=== PATIENT | female | born 1955 | race Caucasian/White ===

== ENCOUNTER → 2017-06-11 | Outpatient (CLI) | payer BC ==
[~2017-06-11] MED LIST: AMLO10TA2 PO; FLUO40CA9 PO; LOSA25TA5 PO
== END | disposition home or self-care (01) ==
LOC: CFH 08:10
PROVIDERS: ATTEND Internal Medicine Hematology & Oncology
DX: C50.212 Malignant neoplasm of upper-inner quadrant of left female breast (principal); Z92.21 Personal history of antineoplastic chemotherapy; Z92.3 Personal history of irradiation
CPT/HCPCS: 76641; G0206

== ENCOUNTER → 2017-06-11 | Outpatient (CLI) | payer BC | END | disposition home or self-care (01) | LOC: PETCFH 08:06 | PROVIDERS: ATTEND Internal Medicine Hematology & Oncology | DX: M89.8X8 Other specified disorders of bone, other site (principal); M89.58 Osteolysis, other site; C50.512 Malignant neoplasm of lower-outer quadrant of left female breast | CPT/HCPCS: 78815; A9552 ==

== ENCOUNTER → 2017-11-26 | Outpatient (CLI) | payer BC | END | disposition home or self-care (01) | LOC: PETCFH 07:25 | PROVIDERS: ATTEND Internal Medicine Hematology & Oncology | DX: C50.512 Malignant neoplasm of lower-outer quadrant of left female breast (principal); M85.88 Other specified disorders of bone density and structure, other site | CPT/HCPCS: 78815; A9552 ==

== ENCOUNTER → 2018-03-25 | Outpatient (CLI) | payer BC | END | disposition home or self-care (01) | LOC: PETCFH 13:20 | PROVIDERS: ATTEND Internal Medicine Hematology & Oncology | DX: C79.51 Secondary malignant neoplasm of bone (principal); C50.512 Malignant neoplasm of lower-outer quadrant of left female breast; G89.3 Neoplasm related pain (acute) (chronic) | CPT/HCPCS: 78815; A9552 ==

== ENCOUNTER → 2018-04-22 | Outpatient (CLI) | payer BC | LOC: ROC 13:43 | PROVIDERS: ATTEND Radiology Radiation Oncology | DX: Z08 Encounter for follow-up examination after completed treatment for malignant neoplasm (principal); C79.51 Secondary malignant neoplasm of bone; C50.512 Malignant neoplasm of lower-outer quadrant of left female breast | CPT/HCPCS: 99214; G0463 ==

== ENCOUNTER → 2018-05-14 | Outpatient (CLI) | payer BC | END | disposition home or self-care (01) | LOC: CFH 13:44 | PROVIDERS: ATTEND Radiology Radiation Oncology | DX: C79.51 Secondary malignant neoplasm of bone (principal); C50.512 Malignant neoplasm of lower-outer quadrant of left female breast; G89.3 Neoplasm related pain (acute) (chronic) | CPT/HCPCS: 72190; 72220 ==

== ENCOUNTER → 2018-08-05 | Outpatient (CLI) | payer BC ==
[~2018-08-05] MED LIST changes: -AMLO10TA2 PO; +AMLO10TA6 PO; -LOSA25TA5 PO; +LOSA25TA6 PO
== END | disposition home or self-care (01) ==
LOC: EDSTATUS 06-06 14:11 → ROC 09:46
PROVIDERS: ATTEND Radiology Radiation Oncology
DX: Z02.9 Encounter for administrative examinations, unspecified (principal)

== ENCOUNTER → 2018-11-15 | Outpatient (CLI) | payer BC ==
[~2018-11-15] MED LIST changes: +GADOBUTROL 7.5 MMOL/7.5 ML PFS ONE; +LOSA25TA25 PO; -LOSA25TA6 PO
== END | disposition home or self-care (01) ==
LOC: CFH 14:59
PROVIDERS: ATTEND Internal Medicine Hematology & Oncology
DX: R11.2 Nausea with vomiting, unspecified (principal); R42 Dizziness and giddiness
CPT/HCPCS: 70553; A9585

== ENCOUNTER → 2018-11-21 | Outpatient (CLI) | payer BC ==
[~2018-11-21] MED LIST changes: -AMLO10TA6 PO; +AMLO10TA8 PO; -GADOBUTROL 7.5 MMOL/7.5 ML PFS ONE
== END | disposition home or self-care (01) ==
LOC: PETCFH 12:52
PROVIDERS: ATTEND Internal Medicine Hematology & Oncology
DX: C50.512 Malignant neoplasm of lower-outer quadrant of left female breast (principal); Z85.3 Personal history of malignant neoplasm of breast
CPT/HCPCS: 78815; A9552

== ENCOUNTER 2019-01-09 16:17 | Observation (INO) | payer BC ==
[~2019-01-09] VITALS: Ht 162.6 cm; Wt 50.0 kg
--- NOTE | 2019-01-09 16:20 | NUR ---
63 YR OLD FEMALE ARRIVED VIA EMS. PT STRAIGHT TO CT. PER EMS, LEFT FACIAL DROOP, GARBLED SPEECH, NO WEAKNESS OR PARASTESIA. PT WITH SAJAN IV'S IN PLACE, BS 80. PER PTS , HE CAME HOME HEARD A "MOAN" HE FOUND HER TO BE "LOCKED UP, LEFT GAZE" NOT RESPONDING, "HOLDING BREATH" AND THEN IT RELAXED. LAST NORMAL [id number]. PT WITH FLAT AFFECT, SLIGHT LEFT FACIAL DROOP. PT FOLLOWS COMMANDS IE: SQUEEZE MY HANDS. PT DENIES PAIN AT THIS TIME. PER PTS , "THAT IS WEIRD, SHE TAKES PAIN MEDS, SHES ALWAYS IN PAIN"
--- NOTE | 2019-01-09 16:45 | NUR ---
PLACED IN ROOM FROM CT. DR ESCOBAR AT BEDSIDE TO EVAL PT. PTS ROHAN AT BEDSIDE
[2019-01-09 16:59] LABS: MEAN CORPUSCULAR HEMOGLOBIN 36.2 pg (27.0-34.8); MEAN CORPUSCULAR VOLUME 106.5 fL (80-100); MEAN PLATELET VOLUME 6.9 fL (7.4-10.4); PLATELET COUNT 146 x10^3/uL (130-400); RED BLOOD COUNT 3.65 x10^6/uL (3.82-5.3)
[2019-01-09 17:06] LABS: INTERNATIONAL NORMALIZED RATIO 0.99 (0.93-1.1); PROTHROMBIN TIME 10.4 Seconds (9.6-11.5)
--- NOTE | 2019-01-09 17:07 | NUR ---
DR BLANCO AT BEDSIDE TO EVAL PT
[2019-01-09] MEDS ORDERED: PROC25SU25 PR (17:20)
[2019-01-09] MEDS ORDERED: ALPR0.25 PO (17:20)
[2019-01-09] MEDS ORDERED: OXYC5TAB3 PO (17:20)
[2019-01-09] MEDS ORDERED: OXYC15TA60 PO (17:20)
--- NOTE | 2019-01-09 17:28 | NUR ---
DR KWOK AT BEDSIDE TO EVAL PT
[2019-01-09 17:34] LABS: BASOPHILS % (AUTO) 0 % (0-1); EOSINOPHILS # (AUTO) 0.01 x10^3/uL (0-0.4); EOSINOPHILS % (AUTO) 0 % (1-7); LYMPHOCYTES # (AUTO) 0.24 x10^3/uL (1-3.4); LYMPHOCYTES % (AUTO) 11 % (22-44); MD MORPH REVIEW ONLY; MONOCYTES # (AUTO) 0.13 x10^3/uL (0.2-0.8); MONOCYTES % (AUTO) 6 % (2-9); NEUTROPHILS # (AUTO) 1.82 x10^3/uL (1.8-6.8); NEUTROPHILS % (AUTO) 83 % (42-75)
[2019-01-09 17:35] LABS: <PLATELET ESTIMATE> ADEQUATE; <PLT MORPHOLOGY> NORMAL PLT MORPH
--- NOTE | 2019-01-09 17:43 | NUR ---
PT MOVED TO TR01, REPORT TO THOMAS ISAACS.
[2019-01-09] MEDS ORDERED: ONDANSETRON 2MG/ML, 2ML IVPush PRN (18:00)
[2019-01-09] MEDS ORDERED: LORazepam 2 MG/ML, 1ML IVPush PRN (18:00)
[2019-01-09] MEDS ORDERED: hydrALAzine 20 MG/ML, 1ML IVPush PRN (18:00)
[2019-01-09] MEDS ORDERED: IBUPROFEN 600 MG TABLET PO PRN (18:00)
[2019-01-09] MEDS ORDERED: ACETAMINOPHEN 325 MG TABLET PO PRN (18:00)
[2019-01-09] MEDS ORDERED: LORazepam 2 MG/ML, 1ML IV PRN ×4 (18:00)
[2019-01-09] MEDS ORDERED: LORazepam 1MG TABLET PO PRN ×3 (18:00)
[2019-01-09] MEDS ORDERED: LORazepam 0.5MG TABLET PO PRN (18:00)
[2019-01-09] MEDS ORDERED: LEVETIRACETAM 1,000 MG in SODIUM CHLORIDE 0.9% 100 ML IV ONE (18:00)
--- NOTE | 2019-01-09 18:23 | NUR ---
REC PT AND REPORT UP TO BS COMMODE AT THIS TIME PT A04 BUT DROWSY
[2019-01-09] MEDS ORDERED: POTASSIUM CHLORIDE 10% 40 MEQ/30 ML UDC PO ONE (18:30)
[2019-01-09] MEDS ORDERED: CALCIUM CHLORIDE 13.6 MEQ in SODIUM CHLORIDE 0.9% 100 ML IV ONE (18:30)
[2019-01-09] MEDS ORDERED: ONDANSETRON 2MG/ML, 2ML ONE (19:37)
--- NOTE | 2019-01-09 19:50 | NUR ---
pt back in bed. ordered meds given. pt given antiemetic for nausea after K+ admin. pt also givne water per pt request. will continue to monitor. bilat bedrails up.
[2019-01-09] MEDS ORDERED: MAGNESIUM SULFATE PMX 2GM/50ML 50 ML IV ONE (20:00)
--- NOTE | 2019-01-09 20:25 | NUR ---
REPORT TO RAZA ISAACS FOR ROOM 402-1
[2019-01-09 20:42] VITALS: BP 160/87
[2019-01-10] MEDS: OXYcodone IR 5MG TABLET PO PRN ×3 (00:09→09:29)
[2019-01-10 02:03] VITALS: BP 139/78
[2019-01-10 04:54] LABS: MEAN CORPUSCULAR HEMOGLOBIN 37.1 pg (27.0-34.8); MEAN CORPUSCULAR VOLUME 105.8 fL (80-100); MEAN PLATELET VOLUME 7.5 fL (7.4-10.4); PLATELET COUNT 172 x10^3/uL (130-400); RED BLOOD COUNT 3.68 x10^6/uL (3.82-5.3); RED CELL DISTRIBUTION WIDTH 13.1 % (9.6-15.2)
[2019-01-10 04:58] LABS: ANION GAP 7 mmol/L (5-15); CHLORIDE 104 mmol/L (98-107)
[2019-01-10 05:00] LABS: CREATININE 0.85 mg/dL (0.55-1.02)
[2019-01-10 05:55] LABS: BASOPHILS % (AUTO) 0 % (0-1); EOSINOPHILS # (AUTO) 0.02 x10^3/uL (0-0.4); EOSINOPHILS % (AUTO) 1 % (1-7); LYMPHOCYTES % (AUTO) 23 % (22-44); MD SCAN; MONOCYTES # (AUTO) 0.25 x10^3/uL (0.2-0.8); MONOCYTES % (AUTO) 9 % (2-9); NEUTROPHILS # (AUTO) 1.78 x10^3/uL (1.8-6.8); NEUTROPHILS % (AUTO) 67 % (42-75)
[2019-01-10 06:55] VITALS: BP 139/76
[2019-01-10] MEDS ORDERED: SENNA/DOCUSATE TABLET PO SCH (09:00)
[2019-01-10] MEDS ORDERED: LEVETIRACETAM 500 MG TABLET PO SCH ×2 (09:00)
[2019-01-10] MEDS ORDERED: MULTIVITAMINS/MINERALS TABLET PO SCH (09:00)
[2019-01-10] MEDS ORDERED: LEVE500T53 PO (09:38)
[2019-01-11] MEDS ORDERED: THIAMINE 100 MG in DEXTROSE 5% 50 ML IVPB SCH (09:00)
== END 2019-01-10 13:18 | disposition home or self-care (01) ==
LOC: ED 16:45 → EDIP 17:40 → 4WST 20:33 → DCLOUNGE 01-10 13:00
PROVIDERS: ADMIT Hospitalist; ATTEND Hospitalist
DX: G40.209 Localization-related (focal) (partial) symptomatic epilepsy and epileptic syndromes with complex partial seizures, not intractable, without status epilepticus (principal); D75.89 Other specified diseases of blood and blood-forming organs; E87.6 Hypokalemia; D72.819 Decreased white blood cell count, unspecified; F11.20 Opioid dependence, uncomplicated; F17.210 Nicotine dependence, cigarettes, uncomplicated; F13.20 Sedative, hypnotic or anxiolytic dependence, uncomplicated; H51.8 Other specified disorders of binocular movement; I10 Essential (primary) hypertension; R13.10 Dysphagia, unspecified; Z79.899 Other long term (current) drug therapy; Z85.3 Personal history of malignant neoplasm of breast; Z79.01 Long term (current) use of anticoagulants
CPT/HCPCS: 36415; 70450; 70496; 70498; 80047; 80048; 82607; 83735; 85025; 85610; 85730; 93005; 95819; 96365; 96366; 96368; 99291; G0378; J1953; J3475

== ENCOUNTER → 2019-03-25 | Outpatient (CLI) | payer BC ==
[~2019-03-25] MED LIST changes: +ABEM100T PO; +ALPR0.25 PO; +LEVE500T53 PO; +OXYC15TA60 PO; +OXYC5TAB3 PO; +PROC25SU25 PR
== END | disposition home or self-care (01) ==
LOC: PETCFH 09:20
PROVIDERS: ATTEND Internal Medicine Hematology & Oncology
DX: C50.512 Malignant neoplasm of lower-outer quadrant of left female breast (principal); G35 Multiple sclerosis
CPT/HCPCS: 78815; A9552

== ENCOUNTER 2021-02-25 09:53 | Emergency (ER) | payer BC ==
[~2021-02-25] VITALS: Ht 165.1 cm; Wt 53.0 kg
[~2021-02-25 09:53] MED LIST changes: +AMLO-211 PO; -AMLO10TA8 PO; -OXYC5TAB3 PO; +OXYC5TAB98 PO
--- NOTE | 2021-02-25 10:00 | NUR ---
PT BIBA, REPORT TAKEN FROM EMS. C/O RUE PAIN SINCE 02/[address] SCAN WITH IV CONTRAST TO RIGHT AC, PAIN RADIATES TO NECK AND HEAD. ONCOLGIST SEEN YESTERDAY 02/24, ELIQUIS PRESCRIBED FOR PRESUMPTIVE CLOT. ALL MONITORS IN PLACE. A&O. RESPS EVEN AND UNLABORED, DENIES CHEST PAIN, NEURO INTACT. EDMD AT BEDSIDE FOR EVALUATION.
[2021-02-25] MEDS ORDERED: KETAMINE 10 MG/ML, 20ML IV ONE (10:16)
[2021-02-25] MEDS ORDERED: KETAMINE 10 MG/ML, 20ML ONE (10:25)
[2021-02-25] MEDS ORDERED: SODIUM CHLORIDE FLUSH 10ML SYR IVF ONE (10:30)
--- NOTE | 2021-02-25 10:44 | NUR ---
PRECEPTOR NOTE: PIV PLACED TO LEFT WRIST APPRENTICE COOK BY EMS. PT HAS HAD LEFT SIDED LUMPECTOMY WITH LYMPH REMOVAL. MD SMITH NOTIFIED, OK'D USE OF PIV TO LEFT WRIST PT HAS SUSPECTED DVT OF LEFT UPPER ARM. ADVISED LAB TO DRAW PT'S RIGHT WRIST OR HAND FOR ORDERED LABS. BP MEASURED TO LEFT CALF. ALL MONITORS IN PLACED. PT MEDICATED PER EMAR BY FERNY ELY, KETAMINE ADMINISTERED SLOW PUSH. RN'S AT BEDSIDE TO MONITOR PT POST KETAMINE ADMIN. PT TOLERATING WELL, DROWSY, RESPS EVEN AND UNLABORED, PAIN RELIEF ACHIEVED. ALL MONITORS REMAIN IN PLACE. US AT BEDSIDE.
--- NOTE | 2021-02-25 10:53 | NUR ---
pt notes pain level down from 10/10 to 6/10 in rt arm and rt neck. 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 us in prog.
--- NOTE | 2021-02-25 11:45 | NUR ---
WARM COMPRESS PLACED ON RUE AND R SIDE OF NECK
--- NOTE | 2021-02-25 11:45 | NUR ---
pt reports pain level returned to 10/10 s/p ultrasound, pt is awake, alert, anxious, resps even and unlabored. MD Kitchen notified. Verbal order received for 100mcg fentanyl IV push.
[2021-02-25 11:48] LABS: MEAN CORPUSCULAR HEMOGLOBIN 38.7 pg (27.0-34.8); MEAN PLATELET VOLUME 7.9 fL (7.4-10.4); PLATELET COUNT 167 x10^3/uL (130-400); RED BLOOD COUNT 3.59 x10^6/uL (3.82-5.3); RED CELL DISTRIBUTION WIDTH 14.1 % (9.6-15.2)
[2021-02-25] MEDS ORDERED: FENTANYL PF 100 MCG/2ML ONE (11:49)
[2021-02-25 11:56] LABS: ALANINE AMINOTRANSFERASE 18 U/L (12-78); ALBUMIN 2.9 g/dL (3.4-5.0); ANION GAP 9 mmol/L (5-15); CALCIUM 9.6 mg/dL (8.5-10.1); CHLORIDE 100 mmol/L (98-107)
[2021-02-25 11:59] LABS: ALKALINE PHOSPHATASE 145 U/L (45-117); BILIRUBIN,TOTAL 1.2 mg/dL (0.2-1.0); CREATININE 0.55 mg/dL (0.55-1.02); TOTAL PROTEIN 7.6 g/dL (6.4-8.2)
[2021-02-25 12:14] LABS: MD YES
[2021-02-25] MEDS ORDERED: FENTANYL PF 100 MCG/2ML IVPush ONE (12:17)
[2021-02-25 12:32] LABS: BAND#(MANUAL) 0.16 x10^3/uL; BANDS%(MANUAL) 2 % (0-7); LYMPH#(MANUAL) 0.63 x10^3/uL (1-3.4); LYMPHS% (MANUAL) 8 % (22-44); MONOS% (MANUAL) 19 % (2-9); SEG#(MANUAL) 5.61 x10^3/uL (1.8-6.8); SEGS% (MANUAL) 71 % (42-75)
[2021-02-25 12:33] LABS: <PLATELET ESTIMATE> ADEQUATE; <PLT MORPHOLOGY> NORMAL PLT MORPH; ANISOCYTOSIS 1+
[2021-02-25 12:36] VITALS: BP 169/95
--- NOTE | 2021-02-25 12:37 | NUR ---
PT REPORTS RUE PAIN DECREASED FROM 10/10 TO 4/10 S/P FENTANYL ADMIN. PT A&O, RESPS EVEN AND UNLABORED. NSR ON JOB PRINTER APPRENTICE. PT IN NO DISTRESS AT THIS TIME, AWAITING MD RECHECK AND DISPO.
[2021-02-25] MEDS ORDERED: OXYC15TA60 PO (12:46)
[2021-02-25] MEDS ORDERED: OXYC5TAB98 PO (12:46)
[2021-02-25] MEDS ORDERED: AMITRIPTYLINE PO (12:46)
[2021-02-25] MEDS ORDERED: AMOXICILLIN PO (12:46)
[2021-02-25] MEDS ORDERED: ONDA4TAB13 SL (12:46)
--- NOTE | 2021-02-25 13:07 | NUR ---
pt reassessed by JANET Kitchen MD offered pt admit for pain control which pt refused. after MD discussion, pt got out of bed demanding to leave immediately. pt is a&o, resps even and unlabored, ambulatory with steady gait. no n/v. MD informed. piv dc'd with tip intact. pt instructed not to drive today d/t meds given. pt instructed to apply warm compresses for 20 min at time per MD instructions. pt refuses to wait for written dc instructions/script per MD, insisting to leave. pt wheeled to dc desk with wc, states friend is arriving to pick her up.
== END 2021-02-25 13:07 | disposition home or self-care (01) ==
LOC: ED 12:34
DX: M79.621 Pain in right upper arm (principal); G40.909 Epilepsy, unspecified, not intractable, without status epilepticus; F17.200 Nicotine dependence, unspecified, uncomplicated; Z85.3 Personal history of malignant neoplasm of breast
CPT/HCPCS: 36415; 80053; 85025; 87040; 93971; 96374; 96375; 99285; J3010

== ENCOUNTER → 2021-06-16 | Outpatient (CLI) | payer BC ==
[~2021-06-16] MED LIST changes: +AMITRIPTYLINE PO; +AMOXICILLIN PO; +ONDA4TAB13 SL
== END | disposition home or self-care (01) ==
LOC: ROC 09:45
PROVIDERS: ATTEND Radiology Radiation Oncology
DX: C79.51 Secondary malignant neoplasm of bone (principal); F17.210 Nicotine dependence, cigarettes, uncomplicated; Z85.3 Personal history of malignant neoplasm of breast
CPT/HCPCS: 99214; G0463